=== PATIENT | male | born 1955 | race Caucasian/White ===

== ENCOUNTER → 2020-06-07 | Outpatient (CLI) | payer MEDICARE, OTHER ==
--- NOTE | 2020-06-07 14:39 | RAD ---
EXAM: PA, oblique and lateral views right hand DATE: 06/07/2020 12:00 AM INDICATION: Right hand pain COMPARISON: No Prior FINDINGS: Old healed fracture of the proximal phalanx thumb. No definite acute fracture is identified. Scattered IP joint degenerative changes are seen. Moderate soft tissue slightly about the right wrist. Radiocarpal degenerative changes are seen. IMPRESSION: 1. Multifocal degenerative changes as above. 2. No evidence of acute fracture or dislocation. 3. Old/healed fracture proximal phalanx right thumb Electronically signed by: Han Cervantes MD (06/07/2020 2:36 PM) [id number]
--- NOTE | 2020-06-07 14:42 | RAD ---
EXAM: PA view left hand, lateral view left thumb DATE: 06/07/2020 12:00 AM INDICATION: Left hand/thumb pain COMPARISON: No Prior FINDINGS: Thumb metacarpal degenerative changes are seen with flexion at the thumb MCP joint and extension at the thumb IP joint. Scattered IP joint degenerative changes are seen. Moderate soft tissue swelling about the left ring and small finger. Chondrocalcinosis TFCC. IMPRESSION: 1. Multifocal degenerative changes as above. 2. No acute fracture or dislocation. 3. Flexion at the thumb MCP joint and extension at the thumb IP joint, possibly posttraumatic. Electronically signed by: Han Cervantes MD (06/07/2020 2:39 PM) [id number]
--- NOTE | 2020-06-07 14:48 | RAD ---
EXAM: Supine AP view of the abdomen DATE: 06/07/2020 12:00 AM INDICATION: Abdominal pain COMPARISON: No Prior FINDINGS: No abnormal small or large bowel dilatation. Moderate colonic stool content. No abnormal soft tissue mass effect. No suspicious calcifications are seen. Evaluation for free intraperitoneal gas is limited on this supine exam. Lung base opacities are partially profiled. IMPRESSION: 1. No evidence for bowel obstruction. 2. Moderate colonic stool content. No bowel obstruction. 3. Lung base opacities are partially profiled Electronically signed by: Han Cervantes MD (06/07/2020 2:44 PM) [id number]
== END ==
LOC: DXRAD 10:10
PROVIDERS: ATTEND Specialist
DX: M19.042 Primary osteoarthritis, left hand (principal); M11.242 Other chondrocalcinosis, left hand; M79.641 Pain in right hand; M79.645 Pain in left finger(s)
CPT/HCPCS: 73130; 73140; 74018

== ENCOUNTER 2021-03-15 10:37 | Emergency (ER) | payer MEDICARE, OTHER ==
[~2021-03-15] VITALS: Ht 147.3 cm; Wt 75.5 kg
[2021-03-15 10:40] VITALS: BP 161/86
[2021-03-15] MEDS ORDERED: IBUPROFEN 600 MG TABLET. PO ONE (11:00)
--- NOTE | 2021-03-15 11:07 | PHYS DOC ---
Past History Additional Past Medical Histor: seasonal allergies (DAVID CHATTERJEE APRN) Past Surgical History: No Surgical History (DAVID CHATTERJEE APRN) General Adult EDM: Chief Complaint: UPPER EXTREMITY PAIN HPI: HPI: Patient is a 65-year-old male who presents with left hand pain for 3 days. Patient states "a box fell on his left hand". Hand is red, swollen and warm to the touch. Denies taking anything for pain prior to arrival. Denies fever. (DAVID CHATTERJEE APRN) Review of Systems: Review of Systems: Constitutional: Denies fever or chills Eyes: Denies change in visual acuity HENT: Denies nasal congestion or sore throat Respiratory: Denies cough or shortness of breath Cardiovascular: Denies chest pain or edema GI: Denies abdominal pain, nausea, vomiting, bloody stools or diarrhea : Denies dysuria Musculoskeletal: Denies back pain or joint pain Integument: Left hand is red, swollen, warm Neurologic: Denies headache, focal weakness or sensory changes Endocrine: Denies polyuria or polydipsia Lymphatic: Denies swollen glands Psychiatric: Denies depression or anxiety (DAVID CHATTERJEE APRN) Current Medications: Current Meds: Current Medications Medications (Trade) Dose Ordered Sig/Peng Start Time Stop Time Status Last Admin Dose Admin Ibuprofen (Motrin) 600 mg 1X ONCE 03/15/21 11:00 03/15/21 11:01 UNV (DAVID CHATTERJEE APRN) Physical Exam: PE: Constitutional: Well developed, well nourished, no acute distress, non-toxic appearance. [] HENT: Normocephalic, atraumatic, bilateral external ears normal, oropharynx moist, no oral exudates, nose normal. [] Eyes: PERRLA, EOMI, conjunctiva normal, no discharge. [] Neck: Normal range of motion, no tenderness, supple, no stridor. [] Cardiovascular:Heart rate regular rhythm, no murmur [] Lungs & Thorax: Bilateral breath sounds clear to auscultation [] Abdomen: Bowel sounds normal, soft, no tenderness, no masses, no pulsatile masses. [] Skin: Warm, red, swollen left hand Back: No tenderness, no CVA tenderness. [] Extremities: Left hand tenderness, no cyanosis, no clubbing, ROM intact, swelling Neurologic: Alert and oriented X 3, normal motor function, normal sensory function, no focal deficits noted. [] Psychologic: Affect normal, judgement normal, mood normal. [] (DAVID CHATTERJEE APRN) Current Patient Data: Vital Signs: Vital Signs Date Time Temp Pulse Resp B/P (MAP) Pulse Ox O2 Delivery O2 Flow Rate FiO2 03/15/21 10:40 97.5 112 18 161/86 96 Room Air (DAVID CHATTERJEE APRN) EKG: EKG: [] (DAVID CHATTERJEE APRN) Radiology/Procedures: Radiology/Procedures: []XR HAND_LEFT 3 VIEWS History: Pain, redness, swelling. Unable to straighten her separate fingers. Comparison: Right hand radiographs 06/07/2020. Technique: 3 views the left hand. Findings: Decreased osseous mineralization. The thumb demonstrates flexion deformity at the MCP and extension at the IP similar to however less severe than contralateral right hand. Degenerative changes of the MCP with particular osteopenia. Contracture deformities of the index, middle, ring and small fingers. No acute fracture is identified. Question is focal soft tissue swelling at the radial aspect of the thumb. Impression: 1. Left hand deformity characterized by thumb MCP flexion and IP extension and contractures of the second through fifth fingers. No acute fracture identified. Electronically signed by: Sage Beck MD (03/15/2021 11:24 AM) [id number] (DAVID CHATTERJEE APRN) Heart Score: C/O Chest Pain: No Risk Factors: Risk Factors: DM, Current or recent (<one month) smoker, HTN, HLP, family history of CAD, obesity. Risk Scores: Score 0 - 3: 2.5% MACE over next 6 weeks - Discharge Home Score 4 - 6: 20.3% MACE over next 6 weeks - Admit for Clinical Observation Score 7 - 10: 72.7% MACE over next 6 weeks - Early Invasive Strategies (DAVID CHATTERJEE APRN) Course & Med Decision Making: Course & Med Decision Making Pertinent Labs and Imaging studies reviewed. (See chart for details) [] 65-year-old male presents with left hand pain for 3 days. Patient states that a box fell on his hand. Hand is red, swollen and warm to the touch. Left hand x-ray ordered to rule out fracture. Patient given 600 mg of Motrin for pain. X-rays negative for fracture. Patient given Keflex to treat cellulitis. Instru cted patient to take ibuprofen at home for discomfort and make a follow-up appointment with PCP. Patient states that he understands discharge instructions. Patient is hemodynamically stable upon discharge. (DAVID CHATTERJEE APRN) Dragon Disclaimer: Aguilar Disclaimer: This electronic medical record was generated, in whole or in part, using a voice recognition dictation system. (DAVID CHATTERJEE APRN) Attending Co-Sign The patient was seen and interviewed as well as examined at the bedside. The chart was reviewed. The case was discussed. Agree with the plan of care. (DANIELLA DASH DO) Departure Departure: Impression: Primary Impression: Cellulitis Qualified Codes: L03.818 - Cellulitis of other sites Disposition: HOME / SELF CARE / HOMELESS Condition: STABLE Referrals: KATERINE PATEL MD (PCP) Patient Instructions: Cellulitis, [id number] Additional Instructions: You were seen in the emergency room for left hand swelling and pain. I am sending you home with a prescription for Keflex to treat cellulitis. Please make a follow-up appointment with your PCP. Take Motrin at home for discomfort. Return emergency room if you have worsening symptoms or concerns EMERGENCY DEPARTMENT GENERAL DISCHARGE INSTRUCTIONS Thank you for coming to [facility] (ED) today and trusting us with you care. We trust that you had a positivie experience in our Emergency Department. If you wish to speak to the department management, you may call the director at [phone]. YOUR FOLLOW UP INSTRUCTIONS ARE FOLLOWS: 1. Do you have a private Doctor? If you do not have a private doctor, please ask for a resource list of physicians or clinics that may be able to assist you with follow up care. 2. The Emergency Physician has interpreted your x-rays. The X-Ray specialist will also review them. If there is a change in the findings, you will be notified in 48 hours when at all possible. 3. A lab test or culture has been done, your results will be reviewed and you will be notified if you need a change in treatment. ADDITIONAL INSTRUCTIONS AND INFORMATION: 1. Your care today has been supervised by a physician who is specially trained in emergency care. Many problems require more than one evaluation for a complete diagnosis and treatment. We recommend that you schedule your follow up appointment as recommended to ensure complete treatment of you illness or injury. If you are unable to obtain follow up care and continue to have a problem, or if your condition worsens, we recommend that you return to the ED. 2. We are not able to safely determine your condition over the phone nor are we able to give sound medical advice over the phone. For these safety reasons, if you call for medical advice we will ask you to come to the ED for further evaluation. 3. If you have any questions regarding these discharge instructions please call the ED at [phone]. SAFETY INFORMATION: In the interest of safety, wellness, and injury prevention; we encourage you to wear your sealbelt, if you smoke; quite smoking, and we encourage family to use a protective helmet for bicycling and other sporting events that present an increased risk for head injury. IF YOUR SYMPTOMS WORSEN OR NEW SYMPTOMS DEVELOP, OR YOU HAVE CONCERNS ABOUT YOUR CONDITION; OR IF YOUR CONDITION WORSENS WHILE YOU ARE WAITING FOR YOUR FOLLOW UP APPOINTMENT; EITHER CONTACT YOUR PRIMARY CARE DOCTOR, THE PHYSICIAN WHOSE NAME AND NUMBER YOU WERE GIVEN, OR RETURN TO THE ED IMMEDIATELY. Scripts Cephalexin (CEPHALEXIN) 500 Mg Tablet 1 TAB PO BID for cellulitis for 7 Days, #14 TAB Prov: DAVID CHATTERJEE APRN 03/15/21 DAVID CHATTERJEE APRN Mar 15, 2021 11:07 DANIELLA DASH DO Mar 18, 2021 10:14
--- NOTE | 2021-03-15 11:26 | RAD ---
XR HAND_LEFT 3 VIEWS History: Pain, redness, swelling. Unable to straighten her separate fingers. Comparison: Right hand radiographs 06/07/2020. Technique: 3 views the left hand. Findings: Decreased osseous mineralization. The thumb demonstrates flexion deformity at the MCP and extension a t the IP similar to however less severe than contralateral right hand. Degenerative changes of the MC P with particular osteopenia. Contracture deformities of the index, middle, ring and small fingers. N o acute fracture is identified. Question is focal soft tissue swelling at the radial aspect of the th umb. Impression: 1. Left hand deformity characterized by thumb MCP flexion and IP extension and contractures of the s econd through fifth fingers. No acute fracture identified. Electronically signed by: Sage Beck MD (03/15/2021 11:24 AM) [id number]
[2021-03-15] MEDS ORDERED: CEPH500T PO (11:43)
== END 2021-03-15 11:50 | disposition home or self-care (01) ==
LOC: ER 10:37
DX: L03.114 Cellulitis of left upper limb (principal)
CPT/HCPCS: 73130; 99283